=== PATIENT | male | born 2005 | race Caucasian/White ===

== ENCOUNTER 2024-03-31 08:26 | Emergency (ER) | payer OTHER, SELFPAY ==
--- NOTE | ~2024-03-31 | XR_ITS ---
EXAMINATION: XR abdomen/kub 1V DATE: 03/31/2024 09:58 INDICATION: Nausea and vomiting. Diarrhea. TECHNIQUE: A supine view of the abdomen on 2 radiographs was obtained. COMPARISON: None. FINDINGS: There are no dilated loops of bowel. There is a small volume of stool in the colon. IMPRESSION: 1. Normal bowel gas pattern. Reviewed, dictated and finalized at location A. NING AND DEVELOPMENT COORDINATOR
[2024-03-31 08:32] VITALS: BP 150/99; PULSE 101; RESP 28; TEMP 36.9; O2SAT 100
--- NOTE | 2024-03-31 08:48 | ED.NAVMDI ---
HPI - Nausea/Vomiting/Diarrhea General Chief complaint: Nausea/Vomiting/Diarrhea Stated complaint: nausea/diarrhea/abdo pain Time Seen by Provider: 03/31/24 08:45 Source: patient, RN notes reviewed and old records reviewed Mode of arrival: ambulatory Limitations: no limitations History of Present Illness HPI Narrative: 18 year old male who presents to [facility] care with complaints of 5 day history of nausea vomiting and diarrhea. Patient reports that he has not had diarrhea since yesterday but he had emesis this morning. Patient reports no pain in his abdomen just some intermittent cramping type of sensation.Patient reports that he has taken one dose of Imodium for his diarrhea only. Patient denies any fevers, chills sweats or body aches. Patient reports that he has been able to keep some fluids down bur has aversion to foods. MD elicited complaint: nausea, vomiting, diarrhea and other (cramping abdomen) Onset (ago): day(s) (5) Description of vomiting: food contents Description of diarrhea: watery Associated nausea: Yes Associated abdominal pain: Yes Location of pain: other (mid abdominal) Pain consistency: intermittent and other (crampy) Severity: mild Treatment prior to arrival: other (Immodium) Related Data Allergies Allergy/AdvReac Type Severity Reaction Status Date / Time prednisone Allergy Unknown Verified 03/31/24 08:39 Review of Systems Review of Systems: CONSTITUTIONAL: Denies fever, chills, or sweats. EYES: Denies visual changes, redness, or discharge. ENT: Denies rhinorrhea, congestion, sore throat, or otalgia. CARDIOVASCULAR: Denies chest pain, palpitations, or edema. RESPIRATORY: Denies cough or dyspnea. GASTROINTESTINAL: Reports mid abdominal cramping intermittent, positive for nausea, vomiting, or diarrhea. GENITOURINARY: Denies dysuria or hematuria. SKIN: Denies rash or itching. MUSCULOSKELETAL: Denies back pain, joint pain, or myalgia. NEUROLOGIC: Denies headache, numbness, or weakness. PSYCHIATRIC: Denies anxiety or depression. All systems reviewed & are unremarkable except as noted in HPI and below PMFSH Past Medical History Medical History Anxiety May-[place] anomaly Surgical History Surgical History History of placement of ear tubes History of tonsillectomy Social History Social History Smoking status: Current every day smoker Tobacco type: e-cigarettes/vaping Alcohol intake: current Drinks per week: 4 Substance use: current Additional living arrangements comments: gummies- relaxation Occupation/Education: student Gender identity (if verbalized by the patient): Male Comments At time of signature, agree with nursing past medical, surgical, social and family history. There is no relevant family history pertinent to the presenting complaint Exam Narrative: GENERAL: ill-appearing, well-nourished, and in no acute distress. HEAD: Normocephalic, atraumatic. EYES: PERRLA and EOMI. ENT: Nares clear, no rhinorrhea or epistaxis. Mucous membranes moist.TM's normal throat pink with no swelling, tonsils absent NECK: Supple.no lymphadenopathy CHEST: Clear to auscultation. No respiratory distress.no cough noted SAO2 100% on room air HEART: Regular rate and rhythm. No murmur heard. Normal peripheral pulses. ABDOMEN: Soft, nontender to palpation, no McBurney point tenderness, nondistended, decreased bowel sounds noted in all quadrants EXTREMITIES: Normal range of motion. No edema. SKIN: Warm, dry, no rash. NEURO: No focal deficits. Alert and oriented x3. Course Course Emergency Course: Patient is aware of diagnosis, understands and agrees to treatment plan.? Anticipatory guidance given.? Patient agrees to follow-up as directed and is aware of reasons to seek care at the emergency department. Portions of this record may have been created with voice recognition software Level of Care: Express Care Visit Vital Signs Vital signs: Vital Signs Temperature 36.9 C 03/31/24 08:32 Pulse Rate 101 H 03/31/24 08:32 Respiratory Rate 28 H 03/31/24 08:32 Blood Pressure 150/99 H 03/31/24 08:32 Pulse Oximetry 100 03/31/24 08:32 Oxygen Delivery Room Air 03/31/24 08:32 Temperature 36.9 C 03/31/24 08:32 Pulse Rate 101 H 03/31/24 08:32 Respiratory Rate 28 H 03/31/24 08:32 Blood Pressure 150/99 H 03/31/24 08:32 Pulse Oximetry 100 03/31/24 08:32 Oxygen Delivery Room Air 03/31/24 08:32 Reviewed MDM - Nausea/Vomiting/Diarrhea Differential Diagnosis Differential diagnosis: Likely gastroenteritis, dehydration and other (nausea, vomiting, diarrhea, viral syndrome) Medical Records Attestation: I reviewed the patient's medical records. Lab Data Attestation: I reviewed the patient's lab results. Lab results narrative: COVID antigen negative, Influenza A negative, Influenza B negative Labs: Lab Results 03/31/24 Range/Units 08:58 POC Influenza A Ag Negative (Negative) POC Influenza B Ag Negative (Negative) POC SARS CoV-2 Ag Negative (Negative) Imaging Data Attestation: I personally reviewed and interpreted this imaging study as follows: My impression: normal bowel gas pattern, small volume of stool in colon Radiologist's impression: [address] [place] [address] XRay Report Signed Patient: Nolan Trevino : 2005 MR#: [id number] Age: 18 Acct:[id number] Loc: [facility] ADM Date: 03/31/24Attending Dr: Ordering Physician: Brooke Maravilla APRN Date of Service: 03/31/24 Procedure(s): XR abdomen/kub 1V Accession Number(s): [id number] cc: [facility]; Brooke Maravilla APRN~ EXAMINATION: XR abdomen/kub 1V DATE: 03/31/2024 09:58 INDICATION: Nausea and vomiting. Diarrhea. TECHNIQUE: A supine view of the abdomen on 2 radiographs was obtained. COMPARISON: None. FINDINGS: There are no dilated loops of bowel. There is a small volume of stool in the colon. IMPRESSION: 1. Normal bowel gas pattern. Reviewed, dictated and finalized at location A. E WORKER Dictated By: Ced Hernandez MD 03/31/24 1004 Signed By: <Electronically signed by Ced Hernandez MD in OV> Critical Care Time Critical Care Time Critical Care Time: No Discharge Plan Discharge Clinical Impression: Gastroenteritis Patient Disposition: Home, Self-Care Condition: Stable Instructions: Dehydration (ED), Clear Liquid Diet (ED), Gastroenteritis (ED) Additional Instructions: Clear liquids for the next 8-10 hours, then advance to a bland diet as tolerated A bland diet can consist of--BRAT diet which is bananas, rice, applesauce, and toast Avoid fried, greasy, fatty, fried foods Avoid caffeine, nicotine, and alcohol Return to your regular diet in the next 3-4 days Medication as directed for nausea and vomiting Tylenol only for pain [id number] Imodium if develop diarrhea Follow-up with her PCP if continued problems or uncontrolled pain If no improvement 24 hours go to emergency room for further evaluation If your symptoms persist, change or worsen significantly before you can contact your personal physician then please, without delay, go to the emergency department for further evaluation. Follow-up with PCP in 7-10 days or sooner if needed Follow up with PCP soon in regards to your blood pressure which is elevated above threshold for referral. Blood pressure above 120/80 may indicate pre-hypertension. 150/99 Prescriptions: New ondansetron 4 mg tablet,disintegrating 4 mg PO Q6H PRN (Reason: nausea and vomiting) Qty: 20 0RF Follow-up/Referrals: [facility] [Primary Care Provider] - Time of Disposition: 10:14 Quality Gardner Coma Scale Eyes: Open Verbal: Oriented and Alert Motor: Follows Commands Gardner Coma Total Score: 15
[2024-03-31 09:17] LABS: EDCOVIDSCREEN Negative (Negative); EDINFLUASCREEN Negative (Negative); EDINFLUBSCREEN Negative (Negative)
== END 2024-03-31 10:20 | disposition home or self-care (01) ==
PROVIDERS: Emergency Provider Registered Nurse
DX: K52.9 Noninfective gastroenteritis and colitis, unspecified (principal); Z20.822 Contact with and (suspected) exposure to COVID-19; F17.290 Nicotine dependence, other tobacco product, uncomplicated
CPT/HCPCS: 74018; 87426; 87804; 99213; G0463